=== PATIENT | female | born 1990 | race Caucasian/White ===

== ENCOUNTER 2018-11-23 23:06 | Emergency (ER) | payer MEDICAID, OTHER ==
[2018-11-23 23:14] VITALS: BP 131/113
--- NOTE | 2018-11-24 00:06 | ED Physician Documentation ---
PD HPI UPPER EXT INJURY - Stated complaint Stated Complaint: L FINGER LAC - Chief complaint Chief Complaint: Laceration - History obtained from History obtained from: Patient - History of Present Illness Location: Left, Finger (index tip) Type of injury: Laceration (cuitting a box) Where injury occurred: Work Timing - onset: Today Worsened by: Palpating Associated symptoms: Other (bled continually without direct pressure. Bandaid did not work.). No: Weakness, Numbness Similar symptoms before: Has not had sx before Review of Systems Neurologic: denies: Focal weakness, Numbness PD PAST MEDICAL HISTORY - Past Medical History Past Medical History: No - Past Surgical History Past Surgical History: No - Present Medications Home Medications: Ambulatory Orders Medication Instructions Recorded Confirmed Ibuprofen 200 mg PO 11/03/12 11/03/12 HYDROcod/ACETAM 5/325 [[place] 5/325] 1 each PO Q4-6H PRN #14 tablet 11/04/12 cephALEXin [Cephalexin] 500 mg PO TID #20 tablet 11/04/12 - Allergies Allergies/Adverse Reactions: Allergies Allergy/AdvReac Type Severity Reaction Status Date / Time amoxicillin [Amoxicillin] AdvReac Mild Rash Verified 11/23/18 23:14 - Social History Does the pt smoke?: Yes Smoking Status: Current every day smoker Does the pt drink ETOH?: Yes Does the pt have substance abuse?: No - Immunizations Immunizations are current?: Yes - POLST Patient has POLST: No PD ED PE NORMAL - Vitals Vital signs reviewed: Yes - General General: Alert and oriented X 3, No acute distress, Well developed/nourished - Extremities Extremities: Other (left index finger tip palmar side with 1 cm lac with slight bleeding but no FB. Nailbed not involved. ) - Neuro Neuro: Alert and oriented X 3, No motor deficit, No sensory deficit Results - Vitals Vitals: Vital Signs - 24 hr 11/23/18 11/24/18 23:11 00:32 Temperature 36.3 C L Heart Rate 83 Respiratory 18 16 Rate Blood Pressure 131/113 H O2 Saturation 100 Oxygen O2 Source Room air Procedures - Laceration (location) left index finger tip Length in cm: 1 Wound type: Linear, Into subcut fat, Clean Neurovascular status: Sensory intact, Motor intact, Vascular intact Tendon involvement: Tendon intact Anesthesia: Lidocaine 1% Wound Preparation: Irrigated copiously NS, Wound explored, To the base. No: FB identified Skin layer closure: Nylon, Running, Size #-0 - enter number (4), Sutures - enter # (4) Other: Patient tolerated well, No complications, Neurovascular intact, Dressing applied, Tetanus UTD Complexity: Simple Departure - Departure Disposition: 01 Home, Self Care Clinical Impression: Finger laceration Qualifiers: Encounter type: initial encounter Finger: index finger Damage to nail status: without damage Foreign body presence: without foreign body Laterality: left Qualified Code(s): S61.211A - Laceration without foreign body of left index finger without damage to nail, initial encounter Condition: Stable Record reviewed to determine appropriate education?: Yes Instructions: ED Laceration Hand Comments: It is okay to wash and shower. Clean off the wound twice a day with soap and water, or peroxide and water. Apply some antibiotic ointment to it to keep it moist. Also to watch for signs of infection such as purulence, redness or increasing pain. Return to your primary care or the ER at the specified time for suture removal. Suture removal 9 to 10 days. Regular use of the hand is okay. Have it covered if it could be getting dirty. Discharge Date/Time: 11/24/18 00:33
[2018-11-24] MEDS ORDERED: BACITRACIN OINT TOP ONE (00:38)
== END 2018-11-24 00:33 | disposition home or self-care (01) ==
LOC: ED 23:06
DX: S61.211A Laceration without foreign body of left index finger without damage to nail, initial encounter (principal); W45.8XXA Other foreign body or object entering through skin, initial encounter; Y93.89 Activity, other specified; Y99.0 Civilian activity done for income or pay; F17.200 Nicotine dependence, unspecified, uncomplicated
CPT/HCPCS: 12001; 99282; A9270

== ENCOUNTER 2019-03-05 12:51 | Emergency (ER) | payer MEDICAID, OTHER ==
[2019-03-05 13:03] VITALS: BP 136/102
--- NOTE | 2019-03-05 15:54 | ED Physician Documentation ---
PD HPI UPPER EXT INJURY - Stated complaint Stated Complaint: FINGER LAC - Chief complaint Chief Complaint: Laceration - History obtained from History obtained from: Patient - History of Present Illness Location: Right, Finger (3rd) - Additonal information Additional information: 28-year-old female was at work when she accidentally sliced the tip of the right third digit with the manual vegetable slicer. Unable to control bleeding and came here. Td UTD. Patient is right-handed. Better with pressure. Nothing makes it worse. 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 : None HEENT: None Psych: None Musculoskeletal: None Derm: None - Past Surgical History Past Surgical History: No - Present Medications Home Medications: Ambulatory Orders Medication Instructions Recorded Confirmed Ibuprofen 200 mg PO 11/03/12 11/03/12 HYDROcod/ACETAM 5/325 [[place] 5/325] 1 each PO Q4-6H PRN #14 tablet 11/04/12 cephALEXin [Cephalexin] 500 mg PO TID #20 tablet 11/04/12 - Allergies Allergies/Adverse Reactions: Allergies Allergy/AdvReac Type Severity Reaction Status Date / Time amoxicillin [Amoxicillin] AdvReac Mild Rash Verified 03/05/19 13:04 - Social History Does the pt smoke?: Yes Smoking Status: Current every day smoker Does the pt drink ETOH?: Yes Does the pt have substance abuse?: No - Immunizations Immunizations are current?: Yes - POLST Patient has POLST: No PD ED PE NORMAL - Vitals Vital signs reviewed: Yes - General General: Alert and oriented X 3 - HEENT HEENT: Moist mucous membranes - Neck Neck: Supple, no meningeal sign - Derm Derm: Warm and dry - Extremities Extremities: Other (Right third digit, 0.2 cm avulsion to the distal tip. No bony exposure. Neurovascular intact. Nail is not involved) - Neuro Neuro: Alert and oriented X 3 - Psych Psych: Normal mood, Normal affect Results - Vitals Vitals: Oxygen O2 Source Room air PD MEDICAL DECISION MAKING - ED course Complexity details: considered differential, d/w patient ED course: Gelfoam placed over the wound. Xeroform then applied and Kerlix applied. Will treat as an open amputation. Bone is not visible and it is well covered. Warnings of infection and instructions on wound care given at bedside. Also counseled on how to minimize scarring. Patient counseled regarding signs and symptoms for which I believe and urgent re-evaluation would be necessary. Patient with good understanding of and agreement to plan and is comfortable going home at this time This document was made in part using voice recognition software. While efforts are made to proofread this document, sound alike and grammatical errors may occur. Departure - Departure Disposition: 01 Home, Self Care Clinical Impression: Fingertip amputation Qualifiers: Encounter type: initial encounter Qualified Code(s): S68.129A - Partial traumatic metacarpophalangeal amputation of unspecified finger, initial encounter Condition: Good Instructions: ED Laceration Amputation Finger Tip Open Tx Follow-Up: your,doctor in 1 week for wound check [Other] Comments: Return if you worsen. Follow-up with your doctor in 1 week for wound check. Return especially for redness, swelling or drainage from the wound. Discharge Date/Time: 03/05/19 16:00
== END 2019-03-05 16:00 | disposition home or self-care (01) ==
LOC: ED 12:51
DX: S68.622A Partial traumatic transphalangeal amputation of right middle finger, initial encounter (principal); W27.4XXA Contact with kitchen utensil, initial encounter; Y93.G1 Activity, food preparation and clean up; Y99.0 Civilian activity done for income or pay; F17.200 Nicotine dependence, unspecified, uncomplicated
CPT/HCPCS: 99282

== ENCOUNTER 2023-11-17 07:21 | Emergency (ER) | payer MEDICAID, OTHER ==
--- NOTE | 2023-11-17 07:51 | ED Physician Documentation ---
PD HPI ABD PAIN - Stated complaint Stated Complaint: RT SIDE/BACK PX, - Chief complaint Chief Complaint: Abd Pain - History obtained from History obtained from: Patient - History of Present Illness Timing - onset: Last night (she had intense flank pain last night that did improve after not too long, and she passed a stone in urine. Has had stones before and is c/w that. However still having flank and abd pains today to some degree and that is different from prior episodes.) Timing - duration: Hours Timing - details: Abrupt onset, Still present (much improved but still some cramping pains bladder and right flank area. did not have much hematuria last night.) Quality: Cramping, Aching Location: RLQ, Suprapubic Radiation: Right flank Worsened by: No: Moving, Breathing Associated symptoms: Nausea. 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 : Kidney stones HEENT: None Psych: None Musculoskeletal: None Derm: None - Past Surgical History Past Surgical History: No - Present Medications Home Medications: Ambulatory Orders Medication Instructions Recorded Confirmed HYDROcod/ACETAM 5/325 [[place] 5/325] 1 ea PO Q6H PRN #12 tablet 11/17/23 Naproxen 500 mg PO BID #15 tab 11/17/23 Omeprazole 20 mg PO DAILY 11/17/23 11/17/23 Sertraline [Zoloft] 25 mg PO DAILY 11/17/23 11/17/23 Tamsulosin [Flomax] 0.4 mg PO DAILY #5 cap 11/17/23 - Allergies Allergies/Adverse Reactions: Allergies Allergy/AdvReac Type Severity Reaction Status Date / Time amoxicillin [Amoxicillin] AdvReac Mild Rash Verified 11/17/23 07:35 - Social History Does the pt smoke?: Yes Smoking Status: Current every day smoker Does the pt drink ETOH?: Yes Does the pt have substance abuse?: No - Immunizations Immunizations are current?: Yes - POLST Patient has POLST: No PD ED PE NORMAL - Vitals Vital signs reviewed: Yes - General General: Alert and oriented X 3, Well developed/nourished - Abdomen Abdomen: Normal bowel sounds, Soft, Non tender, Non distended - Female Female : Deferred - Rectal Rectal: Deferred - Back Back: No CVA TTP Results - Vitals Vitals: Oxygen O2 Source Room air - Labs Labs: Laboratory Tests 11/17/23 11/17/23 11/17/23 07:45 07:45 08:29 WBC 5.0 RBC 4.21 Hgb 13.2 Hct 39.7 MCV 94.3 MCH 31.4 H MCHC 33.2 RDW 13.2 Plt Count 275 MPV 9.3 Neut # (Auto) 2.4 Lymph # (Auto) 1.5 [place] # (Auto) 0.7 Eos # (Auto) 0.4 Baso # (Auto) 0.0 Absolute Nucleated RBC 0.00 Nucleated RBC % 0.0 Sodium 134 L Potassium 3.0 L Chloride 108 Carbon Dioxide 18 L Anion Gap 8.0 BUN 15 Creatinine 0.9 Estimated GFR (MDRD) 71 L Glucose 106 H Calcium 9.3 Total Bilirubin 0.3 AST 24 ALT 26 Alkaline Phosphatase 51 Total Protein 9.1 H Albumin 4.0 Globulin 5.1 H Albumin/Globulin Ratio 0.8 L Lipase 50 Urine Color YELLOW Urine Clarity CLEAR Urine pH 7.0 Ur Specific [place] <=1.005 Urine Protein NEGATIVE Urine Glucose (UA) NEGATIVE Urine Ketones NEGATIVE Urine Occult Blood MODERATE H Urine Nitrite NEGATIVE Urine Bilirubin NEGATIVE Urine Urobilinogen 0.2 (NORMAL) Ur Leukocyte Esterase NEGATIVE Urine RBC 0-5 Urine WBC 0-3 Ur Squamous Epith Cells FEW Squamous Urine Bacteria Few Ur Microscopic Review INDICATED Urine Culture Comments NOT INDICATED Urine HCG, Qual NEGATIVE PD Medical Decision Making - ED course Complexity details: reviewed results (shared decision to not image as likely inflammation and spasms. To treat for few days and likely better today/tomorrow. To return if worse. UA checked to ensure no infection.), considered diffe rential (had pain and then passed stone in urine that she saw/verified, but still with some pains that is unusual from her prior stone experience. UA checked and without infection. Abd not tender. I beleive ureteral spasms and possible small hydro still from swelling/clots. Mild enough should pass.), d/w patient Departure - Departure Disposition: 01 Home, Self Care Clinical Impression: Right sided abdominal pain, Kidney stone on right side Condition: Stable Record reviewed to determine appropriate education?: Yes Instructions: ED Stone Renal Passed Prescriptions: Tamsulosin [Flomax] 0.4 mg PO DAILY #5 cap Naproxen 500 mg PO BID #15 tab HYDROcod/ACETAM 5/325 [[place] 5/325] 1 ea PO Q6H PRN #12 tablet PRN Reason: Pain Comments: There can be bladder and ureteral spasms after passing a kidney stone. Sometimes there is small amounts of blood that formed clots and block the way a little bit too. You did have a little bit of blood in your urine but not enough to be visibly so. In other words, there can be some cramping and pain for a couple of days. I wrote prescriptions for some anti-inflammatory and an antispasmodic for the ureter and some pain medicines if you need. They were transmitted to [facility] pharmacy in [place] if you need them. You were given doses of some of those medicines here. If your symptoms decrease and are just well improved for the day and you are able to suffice with Tylenol or ibuprofen then that is perfectly reasonable without the prescription medicines. If you are needing stronger medicine and it lasts more than a couple of days, or if you have worsening pain, then return for evaluation. It is uncommon to have 2 stones passing but would consider the possibility if things are not improving well. Forms: PCP List Discharge Date/Time: 11/17/23 10:15
[2023-11-17 08:00] LABS: BASOPHILS % (AUTO) 0.6 %; EOSINOPHILS # (AUTO) 0.4 10^3/uL (0.0-0.7); EOSINOPHILS % (AUTO) 8.5 %; HCT - HEMATOCRIT 39.7 % (37.0-47.0); HGB - HEMOGLOBIN 13.2 g/dL (12.0-16.0); LYMPHOCYTES # (AUTO) 1.5 10^3/uL (1.5-3.5); LYMPHOCYTES % (AUTO) 28.8 %; MEAN CORPUSCULAR HEMOGLOBIN 31.4 pg (27.0-31.0); MEAN CORPUSCULAR HGB CONC 33.2 g/dL (32.0-36.0); MEAN CORPUSCULAR VOLUME 94.3 fL (81.0-99.0); MEAN PLATELET VOLUME 9.3 fL (7.9-10.8); MONOCYTES # (AUTO) 0.7 10^3/uL (0.0-1.0); MONOCYTES % (AUTO) 13.5 %; NEUTROPHILS # (AUTO) 2.4 10^3/uL (1.5-6.6); NEUTROPHILS % (AUTO) 48.4 %; PLT - PLATELET COUNT 275 10^3/uL (130-450); RED BLOOD COUNT 4.21 10^6/uL (4.20-5.40); RED CELL DISTRIBUTION WIDTH 13.2 % (12.0-15.0)
[2023-11-17 08:37] LABS: ALBUMIN/GLOBULIN RATIO 0.8 (1.0-2.2); BILIRUBIN,TOTAL 0.3 mg/dL (0.2-1.0); CALCIUM 9.3 mg/dL (8.5-10.3); CREATININE 0.9 mg/dL (0.6-1.3); TOTAL PROTEIN 9.1 g/dL (6.4-8.9)
[2023-11-17 08:52] LABS: BILIRUBIN,URINE NEGATIVE (NEGATIVE); GLUCOSE, URINE (UA) NEGATIVE (NEGATIVE); KETONES,URINE (UA) NEGATIVE (NEGATIVE); LEUKOCYTE ESTERASE, URINE NEGATIVE (NEGATIVE); NITRITE,URINE NEGATIVE (NEGATIVE); OCCULT BLOOD,URINE MODERATE (NEGATIVE); PROTEIN,URINE NEGATIVE (NEGATIVE); UROBILINOGEN,URINE 0.2 (NORMAL) E.U./dL (NORMAL)
[2023-11-17] MEDS: TAMSULOSIN 0.4 MG CAPSULE PO STA (08:54)
[2023-11-17] MEDS: KETOROLAC 15 MG/ML VIAL IVP STA (08:54)
[2023-11-17] MEDS: HYDROmorphone 0.5 MG/0.5 ML SYRINGE IVP STA (08:55)
[2023-11-17 09:02] LABS: CLARITY,URINE CLEAR (CLEAR); HCG UR QUAL NEGATIVE
[2023-11-17 09:03] LABS: BACTERIA,URINE Few /HPF (None Seen); RBC,URINE 0-5 /HPF (0-5); SQUAMOUS EPITHELIAL CELL,UR FEW Squamous (<= Few); WBC,URINE 0-3 /HPF (0-5)
[2023-11-17 09:49] VITALS: BP 117/75; O2SAT 95
== END 2023-11-17 10:15 | disposition home or self-care (01) ==
LOC: ED 07:21
DX: N20.0 Calculus of kidney (principal); F17.200 Nicotine dependence, unspecified, uncomplicated; Z87.442 Personal history of urinary calculi; Z79.899 Other long term (current) drug therapy
CPT/HCPCS: 36415; 80053; 81001; 81025; 83690; 85025; 96374; 96375; 99283; A9270; J1170; 81003; 87086